=== PATIENT | female | born 1965 | race Hispanic/Latino ===

== ENCOUNTER 2018-03-26 06:13 | Day surgery (SDC) | payer MEDICAID ==
[~2018-03-26] VITALS: Ht 165.1 cm; Wt 176.6 kg
[~2018-03-26 06:13] MED LIST: BUPR-47 PO; CANA300T PO; CYCL10TA7 PO; GLIM2TAB3 PO; IBUP-2077 PO; OLOP2.5D OP; SODIUM CHLORIDE 0.9% 1000ML 1,000 ML IV ONE
[2018-03-26 07:04] VITALS: BP 155/70
[2018-03-26] MEDS ORDERED: PROPOFOL 10 MG/ML 20ML VIAL IV ONE ×2 (09:10)
[2018-03-26 09:24] VITALS: BP 102/48
[2018-03-26 09:29] VITALS: BP 119/67
[2018-03-26 09:34] VITALS: BP 138/80
== END 2018-03-26 10:15 | disposition home or self-care (01) ==
LOC: DAH 06:13
PROVIDERS: ATTEND Internal Medicine Gastroenterology
DX: R19.4 Change in bowel habit (principal); K57.30 Diverticulosis of large intestine without perforation or abscess without bleeding; E78.5 Hyperlipidemia, unspecified; F41.9 Anxiety disorder, unspecified; F32.9 Major depressive disorder, single episode, unspecified; J45.909 Unspecified asthma, uncomplicated; E11.9 Type 2 diabetes mellitus without complications; Z68.44 Body mass index [BMI] 60.0-69.9, adult; Z79.899 Other long term (current) drug therapy; Z90.710 Acquired absence of both cervix and uterus; Z98.890 Other specified postprocedural states; G47.30 Sleep apnea, unspecified; Z96.659 Presence of unspecified artificial knee joint; E66.01 Morbid (severe) obesity due to excess calories
CPT/HCPCS: 45378; 82948 ×2; 93005; A4606; J2704 ×2; J7030

== ENCOUNTER 2020-03-22 06:43 | Day surgery (SDC) | payer MEDICAID ==
[2020-03-22] VITALS (7 sets, daily range): BP systolic 109–135; BP diastolic 62–73
[~2020-03-22] VITALS: Ht 165.1 cm; Wt 167.4 kg
[~2020-03-22 06:43] MED LIST changes: +ALBU90AE2 IH; +ATOR40TA69 PO; -BUPR-47 PO; +BUPR300T53 PO; +CYCL10 PO; -CYCL10TA7 PO; +CYCL30DR OP; +ERGO500014 PO; +FLUT1BLS IH; +GABA-529 PO; -GLIM2TAB3 PO; +GLIM2TAB30 PO; +LORA10TA7 PO; -OLOP2.5D OP; +OZEMPIC SQ
[2020-03-22] MEDS ORDERED: LIDOCAINE HCL-MPF 2% 5ML VIAL ONE (09:42)
[2020-03-22] MEDS ORDERED: PROPOFOL 10 MG/ML 20ML VIAL IV ONE ×2 (09:42)
== END 2020-03-22 10:30 | disposition home or self-care (01) ==
LOC: DAH 06:43
PROVIDERS: ATTEND Surgery
DX: K21.9 Gastro-esophageal reflux disease without esophagitis (principal); Z20.828 Contact with and (suspected) exposure to other viral communicable diseases; K44.9 Diaphragmatic hernia without obstruction or gangrene; K29.50 Unspecified chronic gastritis without bleeding; K31.89 Other diseases of stomach and duodenum; J44.9 Chronic obstructive pulmonary disease, unspecified; E11.9 Type 2 diabetes mellitus without complications; I10 Essential (primary) hypertension; G47.30 Sleep apnea, unspecified; E66.01 Morbid (severe) obesity due to excess calories; F32.9 Major depressive disorder, single episode, unspecified; Z79.899 Other long term (current) drug therapy; Z79.84 Long term (current) use of oral hypoglycemic drugs; Z98.890 Other specified postprocedural states; Z98.891 History of uterine scar from previous surgery; Z98.84 Bariatric surgery status; Z82.49 Family history of ischemic heart disease and other diseases of the circulatory system; Z82.0 Family history of epilepsy and other diseases of the nervous system; Z82.3 Family history of stroke; Z88.8 Allergy status to other drugs, medicaments and biological substances; Z90.710 Acquired absence of both cervix and uterus; Z68.44 Body mass index [BMI] 60.0-69.9, adult
CPT/HCPCS: 43239; 82948; A4215; A4221; A4222; A4223; A4606; A4620; A4657; A4663; C9803; J2704 ×2; J3490; J7030; U0003

== ENCOUNTER → 2023-11-08 | Outpatient (CLI) | payer MEDICAID ==
[~2023-11-08] MED LIST changes: -ALBU90AE2 IH; +ALBU90AE3 IH; -CYCL10 PO; +CYCL10TA16 PO; -ERGO500014 PO; +ERGO500093 PO; +LEVO-70 PO; -SODIUM CHLORIDE 0.9% 1000ML 1,000 ML IV ONE
== END | disposition home or self-care (01) ==
LOC: SHCH 14:10
PROVIDERS: ATTEND Internal Medicine Cardiovascular Disease
DX: I35.1 Nonrheumatic aortic (valve) insufficiency (principal); I25.10 Atherosclerotic heart disease of native coronary artery without angina pectoris
CPT/HCPCS: 93306

== ENCOUNTER → 2023-12-20 | Outpatient (CLI) | payer MEDICAID | END | disposition home or self-care (01) | LOC: SHCH 10:31 | PROVIDERS: ATTEND Internal Medicine Cardiovascular Disease | DX: I87.1 Compression of vein (principal); I87.2 Venous insufficiency (chronic) (peripheral); I73.9 Peripheral vascular disease, unspecified | CPT/HCPCS: 93925; 93970 ==

== ENCOUNTER → 2024-05-06 | Outpatient (CLI) | payer MEDICAID ==
[2024-05-06 09:55] LABS: CREATININE 0.9 mg/dL (0.5-1.0); POTASSIUM 4.5 mmol/L (3.5-5.1)
== END | disposition home or self-care (01) ==
LOC: LAB 08:44
PROVIDERS: ATTEND Internal Medicine Cardiovascular Disease
DX: R94.31 Abnormal electrocardiogram [ECG] [EKG] (principal); R07.9 Chest pain, unspecified
CPT/HCPCS: 36415; 80048

== ENCOUNTER → 2024-05-15 | Outpatient (CLI) | payer MEDICAID ==
[~2024-05-15] MED LIST changes: +IOHEXOL 350 MG/ML 100ML INFUS..BTL IV ONE; +IOHEXOL-350 50ML VIAL IV ONE; +metoPROLOL tartRATE 1 MG/ML 5ML VIAL IV ONE
--- NOTE | 2024-05-15 16:25 | HMCIMG ---
CT CARDIAC ANGIO W/CONT. CCTA HISTORY: Atherosclerotic heart disease COMPARISON: None TECHNIQUE: Multiple sequential axial images of the chest were obtained along with the CT angiogram of the chest study. Patient was given 100 cc of Omnipaque through intravenous route. FINDINGS: There is no evidence of pulmonary nodule or parenchymal disease. No pleural effusion or pericardial effusion is seen. There is no evidence of pneumothorax. There are normal size mediastinal and hilar lymph nodes. The heart is not enlarged. Degenerative changes of the thoracolumbar spine are present. IMPRESSION: 1. No evidence of pulmonary nodule or effusion is seen. Please see CT angiogram report of coronary arteries.
--- NOTE | 2024-05-20 09:07 | CARDIOLOGY ---
RAD REPORT: [facility] ANGIO RADIOLOGY REPORT: CORONARY CT ANGIOGRAPHY DATE: May 20, 2024 QUALITY: Excellent CLINICAL HISTORY AND INDICATION: [ syncope, chest pain ] TECHNIQUE: After obtaining a preliminary dianeticist image, contrast imaging performed on an Aquillon [id number] scanner. A dedicated, limited window, coronary imaging protocol was used, with single breath-hold, retrospective ECG gating, and automated arrhythmia rejection. 100 cc of low osmolar contrast agent: Omnipaque 350 was delivered via a 18-gauge IV catheter in the right antecubital fossa, using a power injector and followed by 60 cc of normal saline bolus as a chaser. Collimated images were reformatted at 0.5 mm intervals, and sent to an offline independent workstation for interpretation, using 3D anatomic reconstructions: Curved multiplanar reconstructions, maximum intensity projections, and multiplanar imaging. 10 mg IV metoprolol was administered prior to scanning. 0.8 mg SL nitroglycerin was given. CORONARY ARTERY DESCRIPTIONS: The coronary arteries arise in normal position. Left main coronary artery: Normal caliber vessel that trifurcates into the LAD, ramus and LCx. No stenosis. Left anterior descending coronary artery: Normal caliber vessel and gives rise to diagonal and septal branches. No stenosis. Left circumflex coronary artery: Normal caliber, nondominant and gives rise to a large OM branch. No stenosis. Right coronary artery: Large, dominant vessel giving rise to the PL and PDA branches. No stenosis. CAD-RADs: 0, absence of CAD. Salena Coppola MD Cardiovascular Disease [facility] SALENA COPPOLA MD May 20, 2024 09:07
== END | disposition home or self-care (01) ==
LOC: CANPRECLI → RAH 10:50
PROVIDERS: ATTEND Internal Medicine Cardiovascular Disease
DX: I25.10 Atherosclerotic heart disease of native coronary artery without angina pectoris (principal); R94.31 Abnormal electrocardiogram [ECG] [EKG]; R07.9 Chest pain, unspecified; M47.815 Spondylosis without myelopathy or radiculopathy, thoracolumbar region
CPT/HCPCS: 75574; J3490; Q9967 ×2

== ENCOUNTER 2024-09-26 08:44 | Emergency (ER) | payer MEDICAID ==
[2021-04-21 11:57] VITALS: TEMP 98.1
[~2024-09-26] VITALS: Ht 165.1 cm; Wt 123.4 kg
[~2024-09-26 08:44] MED LIST changes: -IOHEXOL 350 MG/ML 100ML INFUS..BTL IV ONE; -IOHEXOL-350 50ML VIAL IV ONE; -metoPROLOL tartRATE 1 MG/ML 5ML VIAL IV ONE
[2024-09-26 08:46] VITALS: BP 155/81; PULSE 85; RESP 16
--- NOTE | 2024-09-26 08:48 | NUR ---
PT JUST NOW BEING PLACED IN ED BED 15
[2024-09-26] MEDS ORDERED: CEPH500B PO (09:52)
--- NOTE | 2024-09-26 09:53 | ERN ---
ED Note History of Present Illness Stated Complaint: LACERATION Chief Complaint: Laceration/Avulsion Time Seen by MD: 08:52 Dictation: This is a 58-year-old female who is morbidly obese presented to the emergency room via EMS with complaints of a laceration that she sustained on the right lateral aspect of the calf. Apparently she was taking out trash at home and they were some glass pieces in there and as she was swirling the bag, the class pierced her skin on the right lateral aspects as she was carrying the bag. This happened an hour ago and she started bleeding. Her son applied pressure and she came into the ER to get it checked out Afebrile heart rate 85 respirations 16 blood pressure 155/81 with a pulse oximetry of 98% on room air Patient has known history of diabetes mellitus, osteoarthritis, hypertension high cholesterol and GERD Allergies: Coded Allergies: metformin (Unverified Allergy, Mild, ITCHING, 01/15/16) Home Meds Active Scripts Cephalexin Monohydrate (Keflex) 500 Mg Cap, 500 MG PO QID for 7 Days, #28 CAP Prov:TRAV KEATING MD 09/26/24 Levofloxacin (Levofloxacin) 500 Mg Tablet, 500 MG PO DAILY, #7 TAB 0 Refills Prov:TERRENCE CORDOVA AGBERNARDA 04/21/21 Reported Medications Cyclosporine (Restasis) 1 Each Droperette, 1 EACH OP BID, DROP 03/17/20 Albuterol Sulfate (Proair Digihaler) 90 Mcg Aer.pw.bas, 1 PUFF IH DAILY 03/17/20 Fluticasone/Vilanterol (Breo Ellipta 200-25 Mcg INH) 1 Each Blst.w.dev, 1 EACH IH DAILY 03/17/20 Loratadine (Loratadine) 10 Mg Tablet, 10 MG PO DAILY, TAB 03/17/20 Ergocalciferol (Vitamin D2) (Vitamin D2) 1,250 Mcg Capsule, 1250 MCG PO QWEEK, CAP 03/17/20 Atorvastatin Calcium (LIPITOR) 40 Mg Tablet, 40 MG PO DAILY, TAB 03/17/20 Gabapentin (Gabapentin) 100 Mg Capsule, 100 MG PO HS, CAP 03/17/20 Cyclobenzaprine HCl (Flexeril) 10 Mg Tab, 10 MG PO BID, TAB 03/17/20 Ibuprofen (Ibuprofen 800 mg Tab) 800 Mg Tab, 800 MG PO BID PRN for PAIN, TAB 03/17/20 [Ozempic] No Conflict Check, 1 MG SQ QWEEK 03/17/20 Bupropion HCl (Wellbutrin Xl) 300 Mg Tab.er.24h, 300 MG PO DAILY, TAB 03/17/20 Glimepiride (Glimepiride) 2 Mg Tablet, 4 MG PO DAILYBKFST, TAB 01/15/16 Canagliflozin (Invokana) 300 Mg Tablet, 300 MG PO ACBKFST, TAB 01/15/16 Past Medical History Past Medical History: Arthritis, Depression, Diabetes-Type II, GERD, High Cholesterol, Hypertension Surgical History: Other Surgical History Other: GASTRIC BYPASS, KNEE REPLACEMENT Family History: Negative Social History: Negative History: Not Applicable RN Note Reviewed/Agreed w/PFSH: Yes Review of System Dictation Constitutional: Negative for fever,chills, and weight loss Eyes: Negative for injury, pain,redness, and discharge ENT: Negative for injury,pain or swelling Cardiovascular: Negative for chest pain, palpitations, and edema Respiratory: Negative for shortness of breath, cough, and wheezing, Abdomen/GI: Negative for abdominal pain, nausea, vomiting, diarrhea, and constipation Back: Negative for injury and pain : Negative for injury, bleeding and discharge MS/Extremity: Negative for injury and deformity positive for laceration and injury due to broken glass on the lateral aspect of the knee and calf Skin: Negative for rash, and discoloration Neuro: Negative for headache, weakness, numbness, tingling, and seizure Psych: Negative for suicide ideation, homicidal ideation, and hallucinations Initial Vital Sign VS Vital Signs Date Time Temp Pulse Resp B/P (MAP) Pulse Ox O2 Delivery O2 Flow Rate FiO2 09/26/24 08:46 85 16 155/81 98 Room Air 0 Physical Exam Dictation General: awake, alert, NAD morbidly obese Head/Face: Normocephalic, atraumatic Eyes: PERRL, EOMI, vision at baseline ENT: oral cavity clear, TMs clear, no signs of infection Neck: Trachea midline, supple, no nuchal rigidity Cardiovascular: RRR, normal S1/S2, No MRGs, no JVD Respiratory: CTAB, no respiratory distress, No rales or wheezes Abdomen: Soft, non-tender, non-distended, normal bowel sounds, no guarding or rebound. Skin: Warm, dry, normal turgor, no rash MS/Extremity: Pulses equal, no cyanosis, neurovascular intact, FROM right lateral aspect of the calf-about 3.75 cm linear laceration with a no active bleeding noted. Neuro: COAx4, GCS 15, strength 5/5, CN 2-12 intact, normal cerebellar exam, normal gait, Psych: Normal behavior, mood, and affect normal Extremities-trace edema without any palpable cords, Homans sign is negative Results (Laboratory/Radiology) Labs Reviewed?: Yes ED Course ED Course Orders Procedure Category Date Status Time Knee 3vws Rt RAD 09/26/24 Resulted 09:28 Vital Signs Date Time Temp Pulse Resp B/P (MAP) Pulse Ox O2 Delivery O2 Flow Rate FiO2 09/26/24 08:46 85 16 155/81 98 Room Air 0 We will perform imaging and administer medications according to the patient's complaint. Once the results are available, will review and personally interpreted the labs to rule out any acute life-threatening emergency the trach require immediate intervention and treatment. I will then re-evaluate the patient after treatment and diagnostic exams have return to determine whether th e patient requires any further testing, can safely be discharged home or need further admission to hospital for additional treatment and evaluation. X-ray of the left right knee-no evidence of any obvious glass pieces. Laceration stapled Discharge to home on antibiotic as she has a known diabetic Medical Decision Making MDM MDM: Differential diagnosis: Superficial laceration, injury to the muscle, injury to the tendon, injury to the bone, retained foreign body Rationale: Tests considered and ordered secondary to shared decision making include: Previous outside records reviewed: Old ER visits. Risk of complication and/or morbidity or mortality of patient management: None Medications-Per medication reconciliation Need for hospitalization: Patient does not meet criteria for hospitalization. Need for emergency major/minor surgery: No There are no social concerns with this patient. Prescription drug management Prescriptions will include symptomatic care Patient's prior external medical records from other ER visits were reviewed by me as indicated. Prior testing and results from previous visits were reviewed. Prior tests were taken into account with medical decision making and resource utilization, independent historian/historians were used to obtain complete medical history. I independently interpreted the test that were performed, results were reviewed by me and considered findings on radiology if ordered. Medical management and examination interpretation discussions were had by me with other qualified healthcare professionals as indicated for the patient's care. Procedure Wound Location: lower extremity Wound Length (cm): 4 Wound's Depth, Shape: superficial, linear Wound Explored: contaminated Irrigated w/ Saline (ccs): 15 Betadine Prep?: Yes Wound Debrided: minimal Wound Repaired With: herber Sterile Dressing Applied?: Yes Problem List Problem List: (1) Laceration of leg not thigh, right (2) Penetrating injury due to glass DX & DISP Disposition: Discharge Departure Impression: Primary Impression: Laceration of leg not thigh, right Additional Impression: Penetrating injury due to glass Condition: Stable Scripts Cephalexin Monohydrate (Keflex) 500 Mg Cap 500 MG PO QID for 7 Days, #28 CAP Prov: TRAV KEATING MD 09/26/24 Referrals: LAURA MARTIN DO (PCP) TRAV KEATING MD Sep 26, 2024 09:53
--- NOTE | 2024-09-26 09:57 | HMCIMG ---
Exam Type: KNEE 3VWS RT Clinical Information: R KNEE LAC Comparison: None Findings: Routine views of the knee are without evidence of fracture, dislocation, arthritic, or inflammatory change. There is status post knee replacement with adequate visualization and alignment of bony and hardware elements. No complications are seen. There are vascular calcifications. The joint space is well maintained and there is no effusion. IMPRESSION: Status post knee replacement.
== END 2024-09-26 10:20 | disposition home or self-care (01) ==
LOC: EDH 08:44
DX: S81.811A Laceration without foreign body, right lower leg, initial encounter (principal); E11.9 Type 2 diabetes mellitus without complications; E78.00 Pure hypercholesterolemia, unspecified; F32.A Depression, unspecified; I10 Essential (primary) hypertension; K21.9 Gastro-esophageal reflux disease without esophagitis; M19.90 Unspecified osteoarthritis, unspecified site; Z79.51 Long term (current) use of inhaled steroids; Z79.621 Long term (current) use of calcineurin inhibitor; Z79.899 Other long term (current) drug therapy; Z96.659 Presence of unspecified artificial knee joint; Z98.84 Bariatric surgery status; W25.XXXA Contact with sharp glass, initial encounter; Y93.89 Activity, other specified; Y92.89 Other specified places as the place of occurrence of the external cause; Y99.8 Other external cause status
CPT/HCPCS: 12002; 73562; 99283